=== PATIENT | male | born 2000 | race Two or more races ===

== ENCOUNTER 2020-12-23 04:03 | Emergency (ER) | payer OTHER ==
[~2020-12-23] VITALS: Ht 170.2 cm; Wt 84.1 kg
--- NOTE | 2020-12-23 07:42 | REPVR ---
PROCEDURE INFORMATION: Exam: XR Left Tibia and Fibula Exam date and time: 12/23/2020 5:29 AM Age: 20 years old Clinical indication: Other: Injury TECHNIQUE: Imaging protocol: XR Left tibia and fibula. Views: 2 views. COMPARISON: No relevant prior studies available. FINDINGS: Bones/joints: Mildly displaced medial malleolus fracture. Soft tissues: Soft tissue swelling. IMPRESSION: Mildly displaced medial malleolus fracture. Electronically signed by: Paulie Arriaga On 12/23/2020 07:42:17 AM
--- NOTE | 2020-12-23 07:42 | REPVR ---
PROCEDURE INFORMATION: Exam: XR Left Ankle Exam date and time: 12/23/2020 5:29 AM Age: 20 years old Clinical indication: Other: Injury TECHNIQUE: Imaging protocol: XR Left ankle. Views: 3 or more views. COMPARISON: No relevant prior studies available. FINDINGS: Bones/joints: Minimally displaced medial malleolus fracture. Soft tissues: Soft tissue swelling. IMPRESSION: Minimally displaced medial malleolus fracture. Electronically signed by: Paulie Arriaga On 12/23/2020 07:41:50 AM
--- NOTE | 2020-12-23 07:44 | REPVR ---
PROCEDURE INFORMATION: Exam: CT Left Lower Extremity Without Contrast, Ankle Exam date and time: 12/23/2020 7:05 AM Age: 20 years old Clinical indication: Injury or trauma; Fall; Blunt trauma; Ankle; Left; Additional info: Fracture (no contrast needed) TECHNIQUE: Imaging protocol: CT of the Left lower extremity without contrast was performed. Exam focused on the ankle. Radiation optimization: All CT scans at this facility use at least one of these dose optimization techniques: automated exposure control; mA and/or kV adjustment per patient size (includes targeted exams where dose is matched to clinical indication); or iterative reconstruction. COMPARISON: CR Ankle, complete LEFT 12/23/2020 4:41 AM FINDINGS: Bones/joints: Acute intra-articular medial malleolus fracture, with mild medial displacement of the major distal fracture fragment. Intra-articular and extra-articular punctate fracture fragments. Soft tissues: Prominent soft tissue swelling and subcutaneous edema. IMPRESSION: Acute intra-articular medial malleolus fracture, with mild medial displacement of the major distal fracture fragment. Electronically signed by: Paulie Arriaga On 12/23/2020 07:44:23 AM
[2020-12-23 08:26] VITALS: BP 135/65
== END 2020-12-23 09:04 | disposition home or self-care (01) ==
LOC: M ED 04:03
DX: S82.52XA Displaced fracture of medial malleolus of left tibia, initial encounter for closed fracture (principal); X50.9XXA Other and unspecified overexertion or strenuous movements or postures, initial encounter; Y92.410 Unspecified street and highway as the place of occurrence of the external cause